=== PATIENT | male | born 1940 | race Caucasian/White ===

== ENCOUNTER 2024-09-21 09:17 | Emergency (ER) | payer MEDICARE, OTHER, SELFPAY ==
[2024-09-21 09:22] VITALS: BP 148/63
[2024-09-21 09:43] VITALS: BP 154/67
--- NOTE | 2024-09-21 09:48 | ED.GENMED ---
History of Present Illness
General
Chief Complaint: Swelling
Time Seen by Provider: 09/21/24 09:38
History of Present Illness
History of Present Illness:
84-year-old male with history of hypertension, CKD, anemia presenting to the emergency department for left lower leg pain and swelling. Patient reports symptoms started about 3 days ago. He notes pain particularly when going up stairs. He reports
that his left lower extremity is typically more swollen than his right lower extremity at baseline, however feels worse than usual. About 2 and half weeks ago he did fly from [place]. Denies chest pain or difficulty breathing. Denies abdominal
pain or GI symptoms. Denies numbness or tingling to his extremity. Denies fever. Denies direct injury or trauma to the leg. Denies additional acute medical complaints
Past History
Past History
ED Past Medical History: Cancer (colon), HTN and Hypothyroidism
ED Past Surgical History: Bowel resection
Phy Exam
Physical Exam
Physical Exam:
General: Well-appearing, no clinical signs of dehydration, nontoxic and in no acute distress
HEENT: protecting airway
Neck: appears supple
CV: Normal heart rate, regular rhythm
Resp: No accessory muscle use, no increased work of breathing, lungs clear to auscultation bilaterally
Abd: No distention
Extremities: No deformities, minimal swelling to the left distal extremity. No palpable tenderness. Distal sensation and pulses intact. Range of motion intact
Neuro: alert, no focal neurologic deficit
: deferred
Rectal: deferred
Psych: Normal affect
Skin: Intact
Scores
Heart Failure Risk
Heart Failure Risk Score: Not Applicable
Course
Orders/Labs/Results
Orders:
Orders
09/21/24 09:26
Electrocardiogram (*1) Urgent
Reason for Study: Bradycardia / Tachycardia
EKG- Treatment ONCE
09/21/24 09:47
US Periph Venous LOWER Ext LT Urgent
Comment:
Reason For Exam: swelling and pain
09/21/24 11:12
Complete Blood Count/With Diff Urgent
Comprehensive Metabolic Panel Urgent
PTT Urgent
Prothrombin Time Urgent
09/21/24 11:34
CT Angio Abd/Pelvis w/wo IV [CT Abd/pelvis Angio W/wo Iv] Urgent
Comment:
Reason For Exam: CT VENOGRAM, venous delay, eval for iliac DVT
09/21/24 11:35
0.9% Sodium Chloride 500 ml [Nss] 500 ml IV BOLUS
09/21/24 12:34
CT Chest Pe Study Urgent
Comment:
Reason For Exam: large LLE DVT
09/21/24 15:01
Apixaban [Eliquis] 10 mg PO ONCE ONE
Abnormal Lab Results
09/21/24
11:12
RBC 4.51 L 10^6/uL
(4.70-6.10)
MCH 31.9 H pg
(27.0-31.0)
Absolute Lymphs (auto) 0.9 L 10^3/uL
(1.2-3.4)
Absolute Monos (auto) 0.9 H 10^3/uL
(0.1-0.6)
Neutrophils % 76.1 H %
(42.2-75.2)
Lymphocytes % 11.2 L %
(20.5-51.1)
Monocytes % 11.0 H %
(1.7-9.3)
PT 14.9 H Sec
(11.4-14.6)
Chloride 109 H mmol/L
(98-107)
Carbon Dioxide 19 L mmol/L
(22-30)
BUN 34 H mg/dl
(9-20)
Creatinine 1.6 H mg/dL
(0.7-1.3)
Glucose 131 H mg/dl
(70-99)
Albumin 3.4 L g/dl
(3.5-5.0)
09/21/24 11:12
09/21/24 11:12
Vital Signs
Initial and Last Documented VS:
Initial Vital Signs
Temp Pulse Resp BP Pulse Ox
98.1 F 44 18 148/63 97
09/21/24 09:22 09/21/24 09:22 09/21/24 09:22 09/21/24 09:22 09/21/24 09:22
Last Documented Vital Signs
Temp Pulse Resp BP Pulse Ox
98.1 F 83 16 133/64 94
09/21/24 09:22 09/21/24 13:00 09/21/24 13:00 09/21/24 13:00 09/21/24 14:23
MDM/Problems Addressed
MDM/Problems Addressed:
84-year-old male with history of hypertension, CKD, anemia presenting to the emergency department with left lower extremity pain and swelling. Vital signs on arrival are normal.
On exam patient is well-appearing, no acute distress or discomfort. Reassuring examination of the left lower extremity with minimal swelling and no palpable tenderness. Patient reports that his left lower extremity is chronically more swollen than
the right lower extremity. However, patient reports recent long plane ride to [place]. DVT is a consideration. Will obtain ultrasound imaging. Otherwise no neurovascular compromise. No infectious findings. No concern for traumatic injury
11:00 -ultrasound shows extensive clot, from common femoral vein to popliteal and peroneal and posterior tibial veins. Will obtain laboratory analysis. Discussed with vascular surgery, recommending CT venogram. Will obtain
15:20 -CT does not show extension into the iliacs. Per vascular surgery, without indication for thrombolysis or surgery. CT of the chest does show some small filling ducts, no heart strain suspected chronicity. In discussion with vascular
surgery, plan for anticoagulation with outpatient follow-up. Feel reasonable, with patient remaining hemodynamically stable. Patient educated on Eliquis. Patient will also require follow-up with a can handler, will provide information. Patient
advised compression and elevation to avoid continued swelling to lower extremity. Strict return precautions were communicated to family and patient at bedside who verbalized understanding.
*Critical Care Note
Total Time (30-74mins, 75-104mins- exclusive of procedures): Not Applicable
ED Attending Note
-
Portions of this chart may have been created with voice recognition software.� Occasional wrong word or��sound alike� substitutions may have occurred due to the inherent limitations of voice recognition software.
Discharge Plan
Departure
Patient Disposition: Home (Routine Discharge)
Date of Disposition: 09/21/24
Time of Disposition: 15:21
Patient with high blood pressure during this ER visit?: No
Condition: Good
Discharge Problem:
Acute deep vein thrombosis (DVT) of left lower extremity
Instructions: Deep vein thrombosis (blood clot in the leg)
Prescriptions:
New
Eliquis DVT-PE Treat 30D Start 5 mg (74 tabs) tablets,dose pack
See Rx Instructions .ROUTE .COMPLEX Qty: 74 0RF
Rx Instructions:
orally per package directions
No Action
dutasteride 0.5 MG capsule
0.5 mg PO QPM
levothyroxine 100 MCG tablet
100 mcg PO DAILY
tamsulosin 0.4 MG capsule
0.4 mg PO QPM
amlodipine 5 MG tablet
5 mg PO DAILY
acetaminophen [Tylenol] 325 mg Tablet
650 mg PO Q4HPRN PRN (Reason: mild pain)
Theragen Tablet
1 tab PO DAILY
bisoprolol fumarate 5 mg Tablet
5 mg PO DAILY
Referrals:
David Aguilar MD [Family Provider] -
Dougie Cao III, MD [Active] -
Alex Reid MD [Active] -
Activity Restrictions/Additional Instructions:
You were seen in the emergency department for swelling to your lower extremity
You were found to have a large clot to your left leg. You were seen by the vascular surgeon and it was determined that you do not need surgery. You were started on Eliquis which is a blood thinner. Please take the medication as instructed by
package instructions. Use a compressive garment on your leg to avoid increased swelling, and keep your leg elevated at nighttime. Please follow-up with the vascular surgeon as well as a can handler
Please follow-up closely with your primary care physician.
Return to the emergency department for any worsening of your symptoms, or any development of chest pain, difficulty breathing, abdominal pain with persistent vomiting and inability to tolerate food or liquid by mouth (concern for dehydration),
weakness, headache or confusion, fever greater than 100.4, or any additional symptoms that are concerning to you.
Thank you for choosing [facility].
Interventions
Interventions:
*Risk Screen - Suicide Last Done: 09/21/24 09:22
*General Assessment Last Done: 09/21/24 09:22
*Neglect/Abuse Screening Last Done: 09/21/24 09:22
*ED COVID-19 Vaccine History Last Done: 09/21/24 09:48
*Nursing Disposition Last Done: 09/21/24 15:48
ED- Cardiac Assessment Last Done: 09/21/24 09:48
ED- Pulmonary Assessment Last Done: 09/21/24 09:48
ED-Skin Assessment Last Done: 09/21/24 09:48
Discharge Date and Time
Discharge Date/Time: 09/21/24 15:48
Print Language: SURINAMESE
[2024-09-21 10:00] VITALS: BP 141/79
[2024-09-21 11:21] LABS: % Basophils 0.7 % (0-2); % Eosinophils 0.6 % (0-6); % Immature Granulocytes 0.4 % (0-0.5); % Lymphocytes 11.2 % (20.5-51.1); % Neutrophils 76.1 % (42.2-75.2); Absolute Basophils 0.1 10^3/uL (0-0.2); Absolute Eosinophils 0.1 10^3/uL (0-0.7); Absolute Lymphocytes 0.9 10^3/uL (1.2-3.4); Absolute Monocytes 0.9 10^3/uL (0.1-0.6); Absolute Neutrophils 6.3 10^3/uL (1.4-6.5); Hematocrit 42.2 % (39.0-52.0); Hemoglobin 14.4 g/dL (13.0-18.0); Mean Corp Hgb Conc. 34.1 g/dL (33.0-37.0); Mean Corpuscular Hgb 31.9 pg (27.0-31.0); Mean Corpuscular Volume 93.6 fL (80.0-94.0); Mean Platelet Volume 9.8 fL (7.4-10.4); Nucleated Red Blood Cells % 0 % (-); Platelet Count 162 10^3/uL (130-400); Red Blood Cell Count 4.51 10^6/uL (4.70-6.10); Red Cell Dist. Width 13.3 % (11.5-14.5); White Blood Cell Count 8.3 10^3/uL (4.8-10.8)
[2024-09-21 11:33] LABS: INR 1.14; PT 14.9 Sec (11.4-14.6)
[2024-09-21 11:34] LABS: ALT (SGPT) 44 U/L (0-50); APTT 32.1 Sec (23.4-35.0); AST (SGOT) 34 U/L (17-59); Albumin 3.4 g/dl (3.5-5.0); Alkaline Phosphatase 100 U/L (38-126); Blood Urea Nitrogen 34 mg/dl (9-20); Carbon Dioxide 19 mmol/L (22-30); Chloride 109 mmol/L (98-107); Glucose 131 mg/dl (70-99); Potassium 4.7 mmol/L (3.5-5.1); Sodium 138 mmol/L (135-145); Total Protein 6.3 g/dl (6.3-8.2); eGFR 42.49
--- NOTE | 2024-09-21 11:36 | CON.VAS ---
Addendum entered and electronically signed by Dougie Cao III, MD 09/21/24 12:01:
This patient was seen and examined with LEMUEL Phelps. I agree with the history and physical exam as well as the assessment and plan. I have the following additions:
Extensive left lower extremity DVT on venous duplex -personally reviewed images and report
Recent travel to [place] 3 weeks ago
No other precipitating events
No history of DVT
On physical exam he is well-appearing
No distress
Thigh and calf of the left lower extremity are edematous but not tight
Foot is warm
Calf skin discoloration is present bilaterally consistent with chronic venous insufficiency
Plan for CT venogram of the abdomen and pelvis
Will review and formulate surgical plan based on this.
Signed:
Dougie Cao III, MD
[facility] Vascular Surgery
[phone] (cell)
Original Note:
Consultation
Consultation Request
Date/Time Consultation Performed: 09/21/24 1130
Requesting Provider: Joann Morton PA-C
Performing Provider: Mindy Hoskins NP-[place] for Dougie Cao III, MD
Reason for Consultation: Left lower extremity DVT
Medical History
-
Chief Complaint: Left lower extremity swelling/pain
History of Present Illness:
This is an 84-year-old male significant past medical history for colon cancer, hypertension, CKD, and anemia who presented to the emergency room today for continued left lower extremity discomfort and swelling. Patient endorses roughly 3 days of
progressing swelling of left lower extremity and discomfort particularly noted when attempting to go up a flight of steps. He denies pain at rest. Denies any additional accompanying symptoms. Venous ultrasound was obtained in ED demonstrating
extensive occlusive thrombus extending from the common femoral vein through the femoral vein, popliteal vein, and peroneal and posterior tibial veins, prompting vascular consultation. Patient denies prior history of DVT. He does endorse prolonged
flight from [place] but that was roughly 3 weeks ago, and denies any symptoms directly following that flight. Denies prior history of seeing a vascular surgeon or requiring vascular intervention.
Past Medical History
Past Medical History: Cancer (Colon), HTN and Hypothyroidism
Past Surgical History: Bowel Resection (Robotic right colectomy with intracorporeal anastomosis 05/11/19, Ex laparotomy, repair of dehisced staple line of the small bowel and proximal diverting ileostomy 05/18/19, Resection and closure of ileostomy
04/29/20)
Allergies / Home Medications
Allergy/AdvReac Type Severity Reaction Status Date / Time
seasonal Allergy Unknown Uncoded 09/21/24 09:21
�Medication �Instructions �Recorded �Confirmed �Type
dutasteride 0.5 mg capsule 0.5 mg PO QPM Urinary issue 05/08/19 09/21/24 History
levothyroxine 100 mcg tablet 100 mcg PO DAILY Thyroid 08/16/19 09/21/24 History
tamsulosin 0.4 mg capsule 0.4 mg PO QPM Urinary issue 08/16/19 09/21/24 History
amlodipine 5 mg tablet 5 mg PO DAILY Heart disease 04/29/20 09/21/24 History
acetaminophen 325 mg tablet 650 mg PO Q4HPRN PRN mild pain 09/21/24 09/21/24 History
(Tylenol)
bisoprolol fumarate 5 mg tablet 5 mg PO DAILY 09/21/24 09/21/24 History
therapeutic multivitamin 1 tab PO DAILY 09/21/24 09/21/24 History
Review of Systems
-
History Source: Patient
Constitutional: Reports No Symptoms
EENT: Reports No Symptoms
Respiratory: Reports No Symptoms
Cardiac: Reports No Symptoms
Vascular: Reports Other (Reports heaviness/discomfort in left lower extremity particularly with walking up flights of steps)
Abdomen/GI: Reports No Symptoms
: Reports No Symptoms
Musculoskeletal: Reports Edema (+2 left lower extremity edema)
Skin: Reports No Symptoms
Neurological: Reports No Symptoms
Endocrine: Reports No Symptoms
Physical Exam
Vital Signs
Temp Pulse Resp BP Pulse Ox
98.1 F 80 16 141/79 94
09/21/24 09:22 09/21/24 10:00 09/21/24 10:04 09/21/24 10:00 09/21/24 10:00
Lab Results
09/21/24 11:12
09/21/24 11:12
Physical Exam
General: No Apparent Distress and Comfortable
HEENT: Normocephalic, Anicteric and Atraumatic
Respiratory: Non Labored Respirations
Cardiac: Negative JVD
GI: Soft, Non Tender and Non Distended
Musculoskeletal: Edema (+2 left lower extremity edema)
Skin: Warm
Neuro: AO x 3
Pulses: Left Dorsalis Pedis: +2 and Left Posterior Tibial: +2
Assessment / Plan
-
Assessment 84-year-old male with extensive occlusive thrombus extending from the left common femoral vein through the femoral vein, popliteal vein, and peroneal and posterior tibial veins; also with occlusive thrombus within the visualized proximal
profunda femoris vein per ultrasound.
Plan:
Would recommend CT venogram of abdomen and pelvis to evaluate iliac vein/vena cava, if clot extends to iliac veins and above would recommend lysis procedure either mechanical or pharmacological. However, if no evidence of clot extending past
common femoral would likely recommend medical management with anticoagulation. Regardless of surgical or medical management patient would benefit from compression therapy, would recommend Kahlil wrap from base of toes to upper thigh with mild to
moderate compression as tolerated, can remove at night.
Given patient's history of chronic kidney disease will provide normal saline bolus prior to CT venogram
I performed this shared service with the attending. I evaluated the patient [id number] and have entered clinical documentation as shown in the encounter note. I performed the following component(s):�history and physical exam. Note that medical
decision making is not final until attested by vascular attending.
[2024-09-21] MEDS: NSS 500 IV (11:47)
[2024-09-21 12:00] VITALS: BP 124/67
[2024-09-21 13:00] VITALS: BP 133/64
[2024-09-21] MEDS: ELIQUIS 10 MG PO (15:29)
== END 2024-09-21 15:48 | disposition home or self-care (01) ==
LOC: EMR 09:17
PROVIDERS: EMERGENCY PHYSICIAN Student in an Organized Health Care Education/Training Program; FAMILY PHYSICIAN Family Medicine
DX: M79.662 Pain in left lower leg (principal); I12.9 Hypertensive chronic kidney disease with stage 1 through stage 4 chronic kidney disease, or unspecified chronic kidney disease; N18.9 Chronic kidney disease, unspecified; E03.9 Hypothyroidism, unspecified; Z79.01 Long term (current) use of anticoagulants; Z85.038 Personal history of other malignant neoplasm of large intestine; Z90.49 Acquired absence of other specified parts of digestive tract; Z96.642 Presence of left artificial hip joint; I82.402 Acute embolism and thrombosis of unspecified deep veins of left lower extremity
CPT/HCPCS: 99284; 96360; 71275; 74174; 80053; 85025; 85610; 85730; 93005; 93971; Q9967

== ENCOUNTER → 2024-11-20 07:10 | Outpatient (REF) | payer MEDICARE, OTHER, SELFPAY ==
[2024-11-20 10:19] LABS: % Basophils 0.9 % (0-2); % Immature Granulocytes 0.2 % (0-0.5); % Lymphocytes 35.3 % (20.5-51.1); % Monocytes 11.1 % (1.7-9.3); % Neutrophils 49.5 % (42.2-75.2); Absolute Basophils 0.1 10^3/uL (0-0.2); Absolute Eosinophils 0.2 10^3/uL (0-0.7); Absolute Lymphocytes 1.9 10^3/uL (1.2-3.4); Absolute Monocytes 0.6 10^3/uL (0.1-0.6); Absolute Neutrophils 2.6 10^3/uL (1.4-6.5); Hematocrit 48.5 % (39.0-52.0); Hemoglobin 15.8 g/dL (13.0-18.0); Mean Corp Hgb Conc. 32.6 g/dL (33.0-37.0); Mean Corpuscular Hgb 31.2 pg (27.0-31.0); Mean Corpuscular Volume 95.8 fL (80.0-94.0); Mean Platelet Volume 9.3 fL (7.4-10.4); Nucleated Red Blood Cells % 0 % (-); Platelet Count 211 10^3/uL (130-400); Red Blood Cell Count 5.06 10^6/uL (4.70-6.10); White Blood Cell Count 5.3 10^3/uL (4.8-10.8)
[2024-11-20 10:52] LABS: ALT (SGPT) 20 U/L (0-50); AST (SGOT) 20 U/L (17-59); Alkaline Phosphatase 113 U/L (38-126); Blood Urea Nitrogen 26 mg/dl (9-20); Calcium 8.8 mg/dl (8.4-10.2); Carbon Dioxide 24 mmol/L (22-30); Chloride 106 mmol/L (98-107); Glucose 105 mg/dl (70-99); Potassium 4.3 mmol/L (3.5-5.1); Sodium 139 mmol/L (135-145); Total Bilirubin 1.2 mg/dl (0.2-1.3); Total Protein 6.9 g/dl (6.3-8.2); eGFR 45.91
[2024-11-20 11:06] LABS: TSH 5.15 uIU/ml (0.47-4.68)
[2024-11-20 11:59] LABS: Glycohemoglobin (HgbA1c) 5.7 % (4.0-5.6)
== END ==
LOC: HWLAB 07:10
PROVIDERS: ATTENDING PHYSICIAN Family Medicine
DX: R73.03 Prediabetes (principal); D50.0 Iron deficiency anemia secondary to blood loss (chronic); E03.9 Hypothyroidism, unspecified
CPT/HCPCS: 36415; 80053; 83036; 84443; 85025